=== PATIENT | male | born 1985 | race Caucasian/White ===

== ENCOUNTER 2017-12-03 18:52 | Emergency (ER) | payer OTHER ==
[~2017-12-03] VITALS: Ht 188 cm; Wt 95.0 kg
[2017-12-03 18:57] VITALS: BP 135/63; PULSE 109; RESP 18; TEMP 98.8; O2SAT 96
[2017-12-03 19:10] VITALS: BP 133/75; PULSE 109; RESP 18; O2SAT 97
--- NOTE | 2017-12-03 19:52 | PD ---
HPI Chief Complaint: Dizziness Time Seen by Provider: 19:33 Travel History International Travel<30 days: No Contact w/Intl Traveler<30days: No Traveled to known affect area: No History of Present Illness HPI The patient is a 32-year-old male that was arrested on outstanding warrant, apparently from [place]. He states he is very thirsty feels like he is going to pass out. He has some slight vertigo and some slight nausea. He denies any major medical problems. He denies any chest pain. He states he's been drinking vodka all day. [facility] Past Medical History Medical History: Denies Significant Hx Diminished Hearing: No Tetanus Vaccination: < 5 Years Influenza Vaccination: Yes Past Surgical History Surgical History: No Previous Surgery Social History Alcohol Use: Yes Tobacco Use: Yes Substance Use: No Allergies-Medications (Allergen,Severity, Reaction): Coded Allergies: No Known Allergies (Verified Allergy, Unknown, 12/03/17) Reported Meds & Prescriptions Reported Meds & Active Scripts Active No Active Prescriptions or Reported Medications Review of Systems Except as stated in HPI: all other systems reviewed are Neg Physical Exam Narrative GENERAL: The patient is alert, oriented 3, extremely thirsty. Distress. His vital signs show heart rate of 109 but are otherwise normal. The patient appears slightly intoxicated. SKIN: Focused skin assessment warm/dry. No needle tracks no wrist slash chisholm are present. The patient has old lacerations on his forearms but these apparently were not self-inflicted. HEAD: Atraumatic. Normocephalic. Neither raccoon eyes nor mercedes sign is present. EYES: Pupils equal and round. No scleral icterus. No injection or drainage. ENT: No nasal bleeding or discharge. Mucous membranes pink and moist. The tympanic membranes are clear and the throat shows minimal erythema with no exudate or abscess. NECK: Trachea midline. No JVD. There is no meningismus present. CARDIOVASCULAR: Regular rate and rhythm. No murmur appreciated. RESPIRATORY: No accessory muscle use. Clear to auscultation. Breath sounds equal bilaterally. GASTROINTESTINAL: Abdomen soft, non-tender, nondistended. Hepatic and splenic margins not palpable. No guarding or rebound is present. MUSCULOSKELETAL: No obvious deformities. No clubbing. No cyanosis. No edema. NEUROLOGICAL: Awake and alert. No obvious cranial nerve deficits. Motor grossly within normal limits. Normal speech. PSYCHIATRIC: The patient appears intoxicated; insight and judgment fair. Data Data Last Documented VS Vital Signs Date Time Temp Pulse Resp B/P (MAP) Pulse Ox O2 Delivery O2 Flow Rate FiO2 12/03/17 20:46 100 18 140/79 (99) 97 Room Air 12/03/17 18:57 98.8 Orders Orders Ondansetron Inj (Zofran Inj) (12/03/17 20:00) Sodium Chlor 0.9% 1000 Ml Inj (Ns 1000 M (12/03/17 20:00) Complete Blood Count With Diff (12/03/17 19:47) Comprehensive Metabolic Panel (12/03/17 19:47) Lipase (12/03/17 19:47) Urinalysis - C+S If Indicated (12/03/17 19:47) Drug Screen, Random Urine (12/03/17 19:47) Alcohol (Ethanol) (12/03/17 19:47) Magnesium (Mg) (12/03/17 19:47) Labs Laboratory Tests Test 12/03/17 20:10 White Blood Count 13.0 TH/MM3 Red Blood Count 5.23 MIL/MM3 Hemoglobin 16.5 GM/DL Hematocrit 45.8 % Mean Corpuscular Volume 87.7 FL Mean Corpuscular Hemoglobin 31.6 PG Mean Corpuscular Hemoglobin Concent 36.1 % Red Cell Distribution Width 13.3 % Platelet Count 297 TH/MM3 Mean Platelet Volume 8.5 FL Neutrophils (%) (Auto) 76.7 % Lymphocytes (%) (Auto) 15.9 % Monocytes (%) (Auto) 4.8 % Eosinophils (%) (Auto) 1.4 % Basophils (%) (Auto) 1.2 % Neutrophils # (Auto) 9.9 TH/MM3 Lymphocytes # (Auto) 2.1 TH/MM3 Monocytes # (Auto) 0.6 TH/MM3 Eosinophils # (Auto) 0.2 TH/MM3 Basophils # (Auto) 0.2 TH/MM3 CBC Comment DIFF FINAL Differential Comment Urine Color RANDA Urine Turbidity CLEAR Urine pH 6.0 Urine Specific [place] 1.015 Urine Protein NEG mg/dL Urine Glucose (UA) NEG mg/dL Urine Ketones NEG mg/dL Urine Occult Blood NEG Urine Nitrite NEG Urine Bilirubin NEG Urine Leukocyte Esterase NEG Urine RBC 0-2 /hpf Urine WBC 3-5 /hpf Urine Squamous Epithelial Cells 0-5 /hpf Urine Bacteria NONE /hpf Microscopic Urinalysis Comment CULT NOT INDICATED Blood Urea Nitrogen 8 MG/DL Creatinine 0.88 MG/DL Random Glucose 106 MG/DL Total Protein 8.8 GM/DL Albumin 3.9 GM/DL Calcium Level 8.9 MG/DL Magnesium Level 2.3 MG/DL Alkaline Phosphatase 121 U/L Aspartate Amino Transf (AST/SGOT) 34 U/L Alanine Aminotransferase (ALT/SGPT) 25 U/L Total Bilirubin 0.6 MG/DL Sodium Level 138 MEQ/L Potassium Level 3.7 MEQ/L Chloride Level 104 MEQ/L Carbon Dioxide Level 27.4 MEQ/L Anion Gap 7 MEQ/L Estimat Glomerular Filtration Rate 102 ML/MIN Lipase 88 U/L Urine Opiates Screen NEG Urine Barbiturates Screen NEG Urine Amphetamines Screen POS Urine Benzodiazepines Screen NEG Urine Cocaine Screen NEG Urine Cannabinoids Screen NEG Ethyl Alcohol Level 19 MG/DL MDM Medical Decision Making Medical Screen Exam Complete: Yes Emergency Medical Condition: Yes Medical Record Reviewed: Yes Interpretation(s) The urine shows randa color and is otherwise normal and culture is not indicated. The lipase is normal. The toxicology screen is positive for amphetamines and negative for all other substances tested in the urine. The CBC shows white count of 13,000 but is otherwise unremarkable. The alcohol level is 19. Differential Diagnosis Amphetamine abuse, alcohol intoxication, alcohol withdrawal, electrolyte disorder, other drug abuse Narrative Course The patient appears to have amphetamine abuse. He denies being on any prescribed medication. This is likely crystal meth. This accounts for his dizziness and persistent tachycardia. He also appears dehydrated. It is now 9 PM and the patient's heart rate is 109. He appears to be calming down and is medically cleared at this time. Diagnosis Primary Impression: Amphetamine abuse Additional Impression: Mild dehydration Additional Instructions: Discontinue drugs of abuse. Drink plenty of liquids for the dehydration. You will have an opportunity to do this in the skilled nursing. Scripts No Active Prescriptions or Reported Meds Disposition: [address] LAW ENFORCEMNT Condition: Stable Chavez Brewer MD Dec 03, 2017 19:52
[2017-12-03] MEDS ORDERED: ONDANSETRON HCL 4 MG/2 ML VIAL IV ONE (20:00)
[2017-12-03] MEDS: SODIUM CHLOR 0.9% 1000 ML INJ 1,000 ML IV SCH ×2 (20:18→20:49)
[2017-12-03 20:19] LABS: BILIRUBIN, URINE NEG (NEG); BLOOD, URINE NEG (NEG); GLUCOSE,URINE NEG (NEG); KETONE, URINE NEG (NEG); NITRITE,URINE NEG (NEG); URINE LEUKOCYTE ESTERASE NEG (NEG)
[2017-12-03 20:26] LABS: AUTOMATED NEUTROPHIL # 9.9 TH/MM3 (1.8-7.7); BASOPHIL # 0.2 TH/MM3 (0-0.2); BASOPHIL % 1.2 % (0.0-2.0); EOSINOPHIL # 0.2 TH/MM3 (0-0.4); EOSINOPHIL % 1.4 % (0.0-4.0); HEMATOCRIT 45.8 % (39.0-51.0); HEMOGLOBIN 16.5 GM/DL (13.0-17.0); LYMPH % 15.9 % (9.0-44.0); LYMPHOCYTE # 2.1 TH/MM3 (1.0-4.8); MEAN CELL VOLUME 87.7 FL (80.0-100.0); MEAN CORPUSCULAR HEMOGLOBIN 31.6 PG (27.0-34.0); MEAN PLATELET VOLUME 8.5 FL (7.0-11.0); MONO % 4.8 % (0.0-8.0); MONOCYTE # 0.6 TH/MM3 (0-0.9); NEUT % 76.7 % (16.0-70.0); PLATELET COUNT 297 TH/MM3 (150-450); RED BLOOD COUNT 5.23 MIL/MM3 (4.50-5.90); RED CELL DISTRIBUTION WIDTH 13.3 % (11.6-17.2)
[2017-12-03 20:27] LABS: CHLORIDE 104 MEQ/L (98-107); MEAN CORPUSCULAR HGB CONC 36.1 % (32.0-36.0); SODIUM (NA) 138 MEQ/L (136-145)
[2017-12-03 20:29] LABS: URINE COLOR AMBER (YELLW/STRAW)
[2017-12-03 20:30] LABS: RBC, URINE 0-2 /hpf (0-3); SQUAMOUS EPITHELIAL CELL URINE 0-5 /hpf (0-5)
[2017-12-03 20:31] LABS: CALCIUM 8.9 MG/DL (8.5-10.1)
[2017-12-03 20:32] LABS: ALBUMIN 3.9 GM/DL (3.4-5.0); BICARBONATE 27.4 MEQ/L (21.0-32.0); BLOOD UREA NITROGEN 8 MG/DL (7-18); GLUCOSE,RANDOM 106 MG/DL (74-106); MAGNESIUM 2.3 MG/DL (1.5-2.5)
[2017-12-03 20:35] LABS: ALT (GPT) 25 U/L (12-78); AST (GOT) 34 U/L (15-37); CREATININE 0.88 MG/DL (0.60-1.30); GLOMERULAR FILTRATION RATE 102 ML/MIN (>89)
[2017-12-03 20:36] LABS: TOTAL BILIRUBIN ADULT 0.6 MG/DL (0.2-1.0); TOTAL PROTEIN 8.8 GM/DL (6.4-8.2)
[2017-12-03 20:37] LABS: ALKALINE PHOSPHATASE 121 U/L (45-117)
[2017-12-03 20:46] VITALS: BP 140/79; PULSE 100; RESP 18; O2SAT 97
== END 2017-12-03 21:12 ==
LOC: PHED 18:52
DX: F15.10 Other stimulant abuse, uncomplicated (principal); E86.0 Dehydration; Z72.0 Tobacco use
CPT/HCPCS: 80053; 80307; 81001; 83690; 83735; 85025; 96374; 99284; J2405; J7030